=== PATIENT | male | born 1990 | race Caucasian/White ===

== ENCOUNTER 2017-11-05 08:34 | Emergency (ER) | payer BC ==
[2017-11-05] MEDS ORDERED: AZITHROMYCIN 250 MG TAB PO (09:24)
[2017-11-05] MEDS ORDERED: LIDOCAINE 1% (MDV) 10 ML INJ INFIL (09:24)
[2017-11-05] MEDS ORDERED: CEFTRIAXONE 250 MG INJ IM (09:30)
[2017-11-05] MEDS: LIDOCAINE 1% (MPF) 5 ML VIAL INJ (10:00)
[2017-11-05 10:27] LABS: ADD UMIC NO; UR ASCORBIC ACID NEGATIVE (NEGATIVE); UR BILIRUBIN (Dip) NEGATIVE (NEGATIVE); UR BLOOD (Dip) NEGATIVE (NEGATIVE); UR CLARITY CLEAR (CLEAR); UR COLOR YELLOW (YELLOW); UR GLUCOSE (Dip) NEGATIVE (NEGATIVE); UR KETONES (Dip) NEGATIVE (NEGATIVE); UR LEUKOCYTE ESTERASE (Dip) NEGATIVE Leu/ul (NEGATIVE); UR NITRITE (Dip) NEGATIVE (NEGATIVE); UR SPECIFIC GRAVITY (Dip) 1.014 (1.003-1.030); UR TOTAL PROTEIN (Dip) NEGATIVE (NEGATIVE); UR UROBILINOGEN (Dip) NEGATIVE (NEGATIVE)
[2017-11-05 10:59] LABS: HEPATITIS B SURFACE ANTIGEN NEGATIVE (NEGATIVE)
[2017-11-05 11:17] LABS: HEPATITIS C VIRAL ANTIBODY NEGATIVE (NEGATIVE); HIV 1&2 ANTIBODY NEGATIVE (NEGATIVE)
[2017-11-05 11:19] LABS: HEPATITIS B SURFACE ANTIBODY POSITIVE (NEGATIVE)
== END 2017-11-05 10:33 | disposition home or self-care (01) ==
LOC: FTE 08:34
DX: K62.89 Other specified diseases of anus and rectum (principal)
CPT/HCPCS: 81003; 86703; 86706; 86803; 87070; 87340; 87591; 99283

== ENCOUNTER 2018-06-11 16:00 | Emergency (ER) | payer SELFPAY, BC | END 2018-06-11 17:13 | disposition left against medical advice (07) | LOC: FTE 16:00 | DX: Z53.21 Procedure and treatment not carried out due to patient leaving prior to being seen by health care provider (principal) | CPT/HCPCS: 93005 ==